=== PATIENT | male | born 1985 | race African-American/Black ===

== ENCOUNTER 2017-05-28 19:55 | Emergency (ER) | payer MEDICAID ==
[~2017-05-28] VITALS: Ht 180.3 cm; Wt 65.8 kg
[2017-05-28 20:23] VITALS: BP 105/71
== END 2017-05-28 20:50 | disposition home or self-care (01) ==
LOC: ER 20:03
DX: J11.1 Influenza due to unidentified influenza virus with other respiratory manifestations (principal)
CPT/HCPCS: 99281; A4606; Z7610; Z7502

== ENCOUNTER 2019-01-14 08:04 | Emergency (ER) | payer MEDICAID ==
[~2019-01-14] VITALS: Ht 180.3 cm; Wt 68.0 kg
[2019-01-14 08:10] VITALS: BP 130/67
[2019-01-14] MEDS ORDERED: DEXAMETHASONE SOD PHOSPHATE 10 MG/ML VIAL ONE (08:24)
[2019-01-14] MEDS ORDERED: KETOROLAC TROMETHAMINE 15 MG/ML VIAL ONE (08:24)
[2019-01-14] MEDS ORDERED: KETOROLAC TROMETHAMINE INJ 30 MG/ML VIAL IM ONE (08:30)
[2019-01-14] MEDS ORDERED: DEXAMETHASONE SOD PHOSPHATE 10 MG/ML VIAL IM ONE (08:30)
== END 2019-01-14 08:40 | disposition home or self-care (01) ==
LOC: ER 08:04
DX: J02.9 Acute pharyngitis, unspecified (principal); R59.0 Localized enlarged lymph nodes
CPT/HCPCS: 87070; 87880; 96372 ×2; 99283; J1100; J1885; 86403-TC

== ENCOUNTER 2020-01-27 21:45 | Emergency (ER) | payer MEDICAID ==
[~2020-01-27] VITALS: Ht 180.3 cm; Wt 72.6 kg
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
--- NOTE | 2020-01-27 22:06 | NUR ---
URINE SENT TO LAB
[2020-01-27] MEDS ORDERED: CEFTRIAXONE 500 MG VIAL ONE (22:11)
[2020-01-27] MEDS ORDERED: AZITHROMYCIN 250 MG TABLET ONE (22:11)
[2020-01-27 22:12] LABS: APPEARANCE,URINE CLEAR (CLEAR); BILIRUBIN,URINE NEGATIVE (NEGATIVE); BLOOD, URINE MODERATE Ery/uL (NEGATIVE); COLOR,URINE YELLOW (YELLOW); KETONES,URINE NEGATIVE (NEGATIVE); LEUKOCYTE ESTERASE ,URINE LARGE (NEGATIVE); NITRITE, URINE NEGATIVE (NEGATIVE); PROTEIN,URINE NEGATIVE (NEGATIVE); UGLUCOSE NEGATIVE (NEGATIVE); UROBILINOGEN,URINE 0.2 EU/dL (0.2)
[2020-01-27] MEDS ORDERED: LIDOCAINE /MPF 1% VIAL 5 ML VIAL ONE (22:12)
[2020-01-27 22:25] LABS: BACTERIA,URINE Few /HPF (None Seen); SQUAMOUS EPITHELIAL CELL,UR Few /HPF (None Seen); WBC,URINE TOO NUMEROUS TO COUN /HPF (0-3)
--- NOTE | 2020-01-27 22:27 | NUR ---
Patient discharged to home in stable condition. Written and verbal after care instructions given. Patient verbalizes understanding of instruction.
[2020-01-27] MEDS ORDERED: AZITHROMYCIN 250 MG TABLET PO ONE (22:30)
[2020-01-27] MEDS ORDERED: CEFTRIAXONE 1 G VIAL IM ONE (22:30)
[2020-01-27 22:53] VITALS: BP 122/74
== END 2020-01-27 22:31 | disposition home or self-care (01) ==
LOC: ER 21:50
DX: Z20.2 Contact with and (suspected) exposure to infections with a predominantly sexual mode of transmission (principal); R30.0 Dysuria
CPT/HCPCS: 81001; 87086; 87491; 87591; 96372; 99283; J0696; J3490; 81000-TC

== ENCOUNTER 2021-06-22 00:36 | Emergency (ER) | payer MEDICAID, OTHER ==
[~2021-06-22] VITALS: Ht 180.3 cm; Wt 68.0 kg
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
[2021-06-22] MEDS ORDERED: IBUPROFEN 400 MG TABLET PO ONE (01:30)
[2021-06-22] MEDS ORDERED: CYCL5TAB PO (01:32)
[2021-06-22] MEDS ORDERED: IBUPROFEN 400 MG TABLET ONE (01:32)
[2021-06-22] MEDS ORDERED: IBUP-1957 PO (01:32)
--- NOTE | 2021-06-22 02:23 | NUR ---
Patient discharged to home in stable condition. Written and verbal after care instructions given. Patient verbalizes understanding of instruction. PT ambulatory with a steady gait
[2021-06-22 02:29] VITALS: BP 135/80
== END 2021-06-22 02:23 | disposition home or self-care (01) ==
LOC: ER 00:38
DX: S13.4XXA Sprain of ligaments of cervical spine, initial encounter (principal); S33.5XXA Sprain of ligaments of lumbar spine, initial encounter; V49.49XA Driver injured in collision with other motor vehicles in traffic accident, initial encounter; Y93.89 Activity, other specified; Y92.413 State road as the place of occurrence of the external cause; Y99.8 Other external cause status
CPT/HCPCS: 72050-TC; 72110-TC